=== PATIENT | female | born 1950 | race Caucasian/White ===

== ENCOUNTER 2019-10-25 | Emergency (ER) | payer MEDICARE, MEDICAID ==
[2019-10-25 13:12] LABS: URINE BILIRUBIN - DIPSTICK NEGATIVE (NEGATIVE); URINE BLOOD DIPSTICK NEGATIVE (NEGATIVE); URINE COLOR YELLOW; URINE GLUCOSE - DIPSTICK NEGATIVE (NEGATIVE); URINE KETONE NEGATIVE (NEGATIVE); URINE LEUK ESTERASE TRACE (NEGATIVE); URINE NITRITE - DIPSTICK NEGATIVE (Negative); URINE PROTEIN - DIPSTICK NEGATIVE (NEG-TRACE); URINE SPECIFIC GRAVITY <=1.005; URINE UROBILINOGEN - DIPSTICK 0.2 E.U./dL (0.2)
[2019-10-25 13:12] LABS: HEMATOCRIT 34.4 % (37.0-47.0); HEMOGLOBIN 11.1 g/dl (12.0-16.0); IMMATURE GRANULOCYTES 1.9 % (0.0-5.0); MEAN CELL VOLUME 100.6 fL CALC (80.0-100.0); MEAN CORPUSCULAR HGB 32.5 pG CALC (26.0-32.0); MEAN CORPUSCULAR HGB CONC 32.3 g/L CALC (32.0-36.0); NEUT# 3.61 thou/uL (2.00-7.15); RED BLOOD COUNT 3.42 mill/uL (4.20-5.60); RED CELL DISTRI WIDTH 12.5 % (11.5-15.5)
[2019-10-25 13:26] LABS: ALBUMIN 4.2 g/dL (3.2-5.0); ALKALINE PHOSPHATASE 155 u/l (38-126); ANION GAP 16 (6-22 (CALC)); BILIRUBIN, TOTAL 0.9 mg/dL (0.0-1.4); BUN 29 mg/dL (8-23); BUN/CREATININE RATIO 18 (12-20 (CALC)); CARBON DIOXIDE 29 mmol/l (22-30); CHLORIDE 98 mmol/l (95-108); CREATININE 1.6 mg/dL (0.5-1.0); GFR 32 ML/MIN (>=60 (CALC)); GFR FOR AFR.AMER. 38 ML/MIN (>=60 (CALC)); LIPASE 307 u/l (23-300); SGOT/AST 61 u/l (9-36); SODIUM 137 mmol/l (137-146); TOTAL PROTEIN 7.9 g/dL (6.3-8.2)
[2019-10-25 13:57] LABS: TSH, 3RD GENERATION 0.48 uIU/mL (0.47 - 4.68)
[2019-10-25] MEDS ORDERED: DOXYCYCL HYC100 M4 PO (14:43)
[2019-10-26] MEDS ORDERED: ALBUTEROL SUL0.083 % IN (10:59)
[2019-10-26] MEDS ORDERED: NEBULIZE2 PO (10:59)
[2019-10-26] MEDS ORDERED: NITROFURANTN100 M2 PO ×2 (10:59→11:53)
== END 2019-10-25 15:18 | disposition home or self-care (01) ==
PROVIDERS: Family Medicine
DX: R53.83 Other fatigue (principal); L03.115 Cellulitis of right lower limb; N18.4 Chronic kidney disease, stage 4 (severe); Z93.1 Gastrostomy status; L89.510 Pressure ulcer of right ankle, unstageable; E44.0 Moderate protein-calorie malnutrition; D50.9 Iron deficiency anemia, unspecified; A49.02 Methicillin resistant Staphylococcus aureus infection, unspecified site
CPT/HCPCS: A6209

== ENCOUNTER 2019-10-26 10:31 | Emergency (ER) | payer MEDICARE, MEDICAID ==
[~2019-10-26 10:31] MED LIST: DOXYCYCL HYC100 M4 PO
[2019-10-26] MEDS ORDERED: NITROFURANTN100 M2 PO ×2 (10:59→11:53)
[2019-10-26] MEDS ORDERED: ALBUTEROL SUL0.083 % IN (10:59)
[2019-10-26] MEDS ORDERED: NEBULIZE2 PO (10:59)
[2019-10-26 11:17] VITALS: BP 102/53
== END 2019-10-26 11:17 | disposition home or self-care (01) ==
LOC: ED 10:31
DX: R53.83 Other fatigue (principal); N18.4 Chronic kidney disease, stage 4 (severe)